=== PATIENT | male | born 1945 | race Caucasian/White ===

== ENCOUNTER 2019-05-24 16:42 | Emergency (ER) | payer OTHER ==
[2019-05-24 16:55] VITALS: BP 105/60
[2019-05-24] MEDS ORDERED: TETANUS/DIPHTHERIA/PERTUSSIS 0.5 ML SYRINGE IM ONE (17:10)
[2019-05-24] MEDS ORDERED: BUFFERED LIDOCAINE 10 ML SYRINGE SUBQ STA (17:10)
--- NOTE | 2019-05-24 17:11 | ED Physician Documentation ---
PD HPI UPPER EXT INJURY - Stated complaint Stated Complaint: LEFT THUMB LAC - Chief complaint Chief Complaint: Laceration - History obtained from History obtained from: Patient - History of Present Illness Location: Left (Right-handed gentleman with unknown tetanus cut his left thumb on a saw while working at home just prior to arrival.) Review of Systems Constitutional: reports: Reviewed and negative Throat: reports: Reviewed and negative Cardiac: reports: Reviewed and negative PD PAST MEDICAL HISTORY - Present Medications Home Medications: Ambulatory Orders Medication Instructions Recorded Confirmed Cephalexin [Keflex] 500 mg PO Q6H #20 capsule 05/24/19 Hydrocodone/Acetaminophen 1 - 2 each PO Q6H PRN #10 tablet 05/24/19 [Hydrocodon-Acetaminophen 5-325] - Allergies Allergies/Adverse Reactions: Allergies Allergy/AdvReac Type Severity Reaction Status Date / Time No Known Drug Allergies Allergy Verified 05/24/19 16:46 PD ED PE NORMAL - Vitals Vital signs reviewed: Yes - General General: Alert and oriented X 3, No acute distress - Extremities Extremities: Other (On the tip of the left thumb there is a curvilinear laceration measuring 2 cm in the pulp of the thumb, he is insensate distal to this especially on the radial side. Normal capillary refill.) - Neuro Neuro: Alert and oriented X 3, Normal speech Results - Vitals Vitals: Vital Signs - 24 hr 05/24/19 16:46 Temperature 36.5 C Heart Rate 81 Respiratory 16 Rate Blood Pressure 105/60 O2 Saturation 98 Oxygen O2 Source Room air Procedures - Laceration (location) L thumb tip Length in cm: 2 Wound type: Curved, Into subcut fat Neurovascular status: Motor intact. No: Sensory intact Tendon involvement: Tendon intact Anesthesia: Lidocaine 1%, With bicarb Skin layer closure: Nylon, Interrupted, Size #-0 - enter number (4-0), Sutures - enter # (9) Other: Patient tolerated well, No complications, Neurovascular intact, Tetanus booster given Complexity: Simple Departure - Departure Disposition: 01 Home, Self Care Clinical Impression: Laceration Condition: Good Record reviewed to determine appropriate education?: Yes Instructions: ED Laceration Hand Prescriptions: Cephalexin [Keflex] 500 mg PO Q6H #20 capsule Hydrocodone/Acetaminophen [Hydrocodon-Acetaminophen 5-325] 1 - 2 each PO Q6H PRN #10 tablet PRN Reason: pain Comments: You can change the dressing once a day, we can wash briefly with soap and water and then keep it covered with a nonstick dressing under which she should have some greasy substance such as bacitracin ointment which is available [id number]. [facility] 2 weeks. Further wound care may be required as there was a tissue defect as discussed. You should probably have a wound check on Wednesday with your doctor [facility] for same.
[2019-05-24] MEDS ORDERED: cephALEXin 250 MG CAPSULE PO STA (17:46)
--- NOTE | 2019-05-24 18:23 | XRAY Report ---
Reason: thumb inj Procedure Date: 05/24/2019 Accession Number: [id number] / [id number] Procedure: XR - Finger(s) LT CPT Code: FULL RESULT: EXAM: LEFT FIRST DIGIT RADIOGRAPHY EXAM DATE: 05/24/2019 05:46 PM. CLINICAL HISTORY: Thumb inj. Left distal thumb laceration with table saw. COMPARISON: None. TECHNIQUE: 3 views. FINDINGS: Bones: Normal. No fracture or bone lesion. Joints: Normal. No subluxations. Soft Tissues: Soft tissue irregularity consistent with laceration of the tip of the distal phalanx of the left thumb without definite radiopaque foreign body. IMPRESSION: No fracture or radiopaque foreign body. RADIA
== END 2019-05-24 17:55 | disposition home or self-care (01) ==
LOC: ED 16:42
DX: S61.012A Laceration without foreign body of left thumb without damage to nail, initial encounter (principal); W31.2XXA Contact with powered woodworking and forming machines, initial encounter; Y93.89 Activity, other specified; Y92.009 Unspecified place in unspecified non-institutional (private) residence as the place of occurrence of the external cause; Z23 Encounter for immunization
CPT/HCPCS: 12001; 73140; 90471; 90715; 99283; A9270

== ENCOUNTER 2019-05-31 19:29 | Emergency (ER) | payer OTHER ==
--- NOTE | 2019-05-31 20:04 | ED Physician Documentation ---
PD HPI WOUND RECHECK - Stated complaint Stated Complaint: L THUMB SWELLING - Chief complaint Chief Complaint: Ext Problem - Histroy obtained from History obtained from: Patient - History of Present Illness Location: Left Hand (thumb) Timing - onset: Today (had thumb lac sutured and was doing okay, but noted redness and swelling of it started today. No drainage.) Associated symptoms: Redness, Swelling Review of Systems Constitutional: denies: Fever, Chills PD PAST MEDICAL HISTORY - Past Medical History Cardiovascular: None Endocrine/Autoimmune: None - Present Medications Home Medications: Ambulatory Orders Medication Instructions Recorded Confirmed Cephalexin [Keflex] 500 mg PO Q6H #20 capsule 05/24/19 Hydrocodone/Acetaminophen 1 - 2 each PO Q6H PRN #10 tablet 05/24/19 [Hydrocodon-Acetaminophen 5-325] Doxycycline Hyclate 100 mg PO BID #20 capsule 05/31/19 Mupirocin 1 applic TP TID #15 g 05/31/19 Saccharomyces Boulardii [Florastor] 250 mg PO BID #20 capsule 05/31/19 - Allergies Allergies/Adverse Reactions: Allergies Allergy/AdvReac Type Severity Reaction Status Date / Time No Known Drug Allergies Allergy Verified 05/31/19 19:35 PD ED PE NORMAL - Vitals Vital signs reviewed: Yes - General General: Alert and oriented X 3, No acute distress, Well developed/nourished - Derm Derm: Normal color, Warm and dry - Extremities Extremities: Other (The left thumb with a sutured laceration which is intact sutures. The majority of the wound appears normal with the radial side of the sutured area having some redness and mild inflammation. There is no fluctuance noted. I took out 2 sutures at that and and there was a faint drop of purulence which I cultured. There is no proximal red streaking nor tenderness.) Results - Vitals Vitals: Vital Signs - 24 hr 05/31/19 05/31/19 19:35 20:53 Temperature 97.7 C H 36.8 C Heart Rate 84 77 Respiratory 16 16 Rate Blood Pressure 110/72 153/82 H O2 Saturation 98 94 Oxygen O2 Source Room air - Labs Labs: Microbiology 05/31/19 20:36 Wound Culture - Preliminary Hand - Left PD MEDICAL DECISION MAKING - ED course Complexity details: considered differential (Signs of early wound infection. He is on cephalexin. I therefore changed to staph coverage with doxycycline and topical mupirocin. He should recheck how it does in the next couple of days. Return if worsening.), d/w patient Departure - Departure Disposition: 01 Home, Self Care Clinical Impression: Laceration re-check, Wound with infection determined by examination Condition: Stable Record reviewed to determine appropriate education?: Yes Follow-Up: SHAUNNA ALEXANDER MD [Primary Care Provider] - Prescriptions: Doxycycline Hyclate 100 mg PO BID #20 capsule Mupirocin 1 applic TP TID #15 g Saccharomyces Boulardii [Florastor] 250 mg PO BID #20 capsule Comments: Cleanse wound with soap and water and even brief soaking twice daily for the next several days to week. Apply mupirocin topical antibiotic to the wound. Stop the cephalexin previous antibiotic. Change to doxycycline twice daily. Add a probiotic Florastor to decrease intestinal side effects of the antibiotic. Recheck if the wound is not improving well over the next 2 to 3 days and return sooner if worsening. I would still go another week or so before stitch removal Discharge Date/Time: 05/31/19 20:57
[2019-05-31] MEDS ORDERED: HYDROcod/ACETAM 5/325 MG TABLET PO STA (20:12)
[2019-05-31] MEDS ORDERED: DOXYCYCLINE 100 MG TABLET PO STA (20:12)
[2019-05-31] MEDS ORDERED: NAPROXEN 250 MG TABLET PO STA (20:12)
[2019-05-31] MEDS ORDERED: MUPIROCIN 2% OINT 1 GM TOP STA (20:38)
[2019-05-31 20:58] VITALS: BP 153/82
== END 2019-05-31 20:57 | disposition home or self-care (01) ==
LOC: ED 19:29
DX: S61.012A Laceration without foreign body of left thumb without damage to nail, initial encounter (principal); L08.9 Local infection of the skin and subcutaneous tissue, unspecified; W31.2XXA Contact with powered woodworking and forming machines, initial encounter
CPT/HCPCS: 87070; 87181; 87205; 99283; A9270